=== PATIENT | female | born 1960 | race Caucasian/White ===

== ENCOUNTER 2021-10-25 16:41 | Emergency (ER) | payer MEDICARE, OTHER ==
[~2021-10-25] VITALS: Ht 154.9 cm; Wt 45.8 kg
--- NOTE | 2021-10-25 17:33 | ED General ---
General Chief Complaint: Altered Mental Status Stated Complaint: CONFUSION Source of Information: Patient, Family () Exam Limitations: Physical Impairments (BRENNAN ERICKSON MD) Source of Information: Old Records (From [facility]) (LAMIN GILLESPIE MD) History of Present Illness Date Seen by Provider: Oct 25, 2021 Time Seen by Provider: 17:00 Initial Comments Patient is a 61-year-old female who presents to the emergency department today with a chief complaint of being confused, not acting like her self, erratic jerky behavior. Her states he talked to her yesterday around 9:30 in the morning and she was planning to go to [place] to get her nails done. He states later in the afternoon she was found by his brother unresponsive on their porch and he took her to the hospital at [facility] where she had some lab work done (minimal), she was given some ropinirole and sent home. He states she has continued to act erratically today sounding confused and not acting like her self. She is on oxycodone for chronic neck and back pain. Reportedly her pill counts were correct yesterday. Her did bring her bag of medications with her today. She has not had any fever, nausea, vomiting, cough or shortness of breath. She has fallen - she complains of pain to her left elbow and has some abrasions. Illicit drugs were tested for yesterday and she was positive for opiates and oxycodone. This is consistent with her prescribed medications. She had a mild elevation in her white blood cell count; has brought medical records from that ED visit with him today. Very difficult to establish a timeline and history from the patient secondary to her confusion and her was not present for the majority of the visit at [place] yesterday so he is unaware of most of the details. Apparently he called her primary care doctor today and was instructed to bring her here for a CAT scan of the head. Timing/Duration: 24 Hours Severity: Moderate Associated Systoms: Malaise, Other (confusion) (BRENNAN ERICKSON MD) Allergies and Home Medications Allergies Coded Allergies: Penicillins (Verified Allergy, Unknown, rash, 10/25/21) unknown reactions other than rash cortisone (Verified Allergy, Unknown, 10/25/21) lorazepam (Verified Allergy, Unknown, 10/25/21) tetracycline (Verified Allergy, Unknown, 10/25/21) Patient Home Medication List Home Medication List Reviewed: Yes (BRENNAN ERICKSON MD) Review of Systems Review of Systems Constitutional: see HPI EENTM: no symptoms reported Respiratory: no symptoms reported Cardiovascular: no symptoms reported Gastrointestinal: no symptoms reported Genitourinary: no symptoms reported : No Musculoskeletal: joint pain (chronic neck and back pain "fibromyalgia") Skin: no symptoms reported difficult to obtain ROS from patient - most of this is from (BRENNAN ERICKSON MD) All Other Systems Reviewed Negative Unless Noted: Yes (BRENNAN ERICKSON MD) Past Mggyhcy-Fdxdyt-Oklxni Hx Patient Social History Tobacco Use?: Yes Tobacco type used: Cigarettes Substance use?: No Alcohol Use?: Yes Alcohol Frequency: Once in a while (LAMIN GILLESPIE MD) Past Medical History Surgeries: Yes Appendectomy, Gallbladder, Orthopedic (Tendon repair) Respiratory: No Cardiac: Yes High Cholesterol Neurological: Yes (Restless leg syndrome) : No Genitourinary: No Gastrointestinal: No Musculoskeletal: Yes Fibromyalgia, Scoliosis (With chronic pain) Lupus HEENT: No Cancer: No Psychosocial: Yes Anxiety, Depression (LAMIN GILLESPIE MD) Physical Exam Vital Signs Vital Signs - First Documented 10/25/21 16:52 Temp 37.2 Pulse 77 Resp 20 B/P (MAP) 125/67 (86) Pulse Ox 100 (LAMIN GILLESPIE MD) Vital Signs Capillary Refill : (BRENNAN ERICKSON MD) Height, Weight, BMI Height: '" Weight: lbs. oz. kg; BMI Method: General Appearance: Anxious, Thin Eyes: Bilateral Eye Normal Inspection, Bilateral Eye PERRL, Bilateral Eye EOMI HEENT: PERRL/EOMI, Other (dry oral mucosa) Neck: Full Range of Motion, Normal Inspection Respiratory: Lungs Clear, Normal Breath Sounds, No Accessory Muscle Use, No Respiratory Distress Cardiovascular: Regular Rate, Rhythm Gastrointestinal: Non Tender, Soft Extremity: Normal Capillary Refill, Normal Inspection, Normal Range of Motion, Non Tender, No Calf Tenderness Neurologic/Psychiatric: Alert, No Motor/Sensory Deficits, Disoriented Skin: Normal Color, Warm/Dry (BRENNAN ERICKSON MD) Focused Exam Lactate Level 10/25/21 17:42: Lactic Acid Level 1.15 (LAMIN GILLESPIE MD) Lactic Acid Level Laboratory Tests Test 10/25/21 17:42 Lactic Acid Level 1.15 MMOL/L (0.50-2.00) (LAMIN GILLESPIE MD) Progress/Results/Core Measures Suspected Sepsis SIRS Temperature: Pulse: Respiratory Rate: Laboratory Tests 10/25/21 17:26: White Blood Count 9.2 Blood Pressure / Mean: 10/25/21 17:42: Laboratory Tests 10/25/21 17:26: Platelet Count 244 (BRENNAN ERICKSON MD) Results/Orders Lab Results Laboratory Tests Test 10/25/21 17:26 10/25/21 17:42 10/25/21 17:43 Range/Units White Blood Count 9.2 4.3-11.0 10^3/uL Red Blood Count 4.29 3.80-5.11 10^6/uL Hemoglobin 13.0 11.5-16.0 g/dL Hematocrit 39 35-52 % Mean Corpuscular Volume 90 80-99 fL Mean Corpuscular Hemoglobin 30 25-34 pg Mean Corpuscular Hemoglobin Concent 34 32-36 g/dL Red Cell Distribution Width 12.8 10.0-14.5 % Platelet Count 244 130-400 10^3/uL Mean Platelet Volume 9.5 9.0-12.2 fL Immature Granulocyte % (Auto) 0 % Neutrophils (%) (Auto) 83 H 42-75 % Lymphocytes (%) (Auto) 12 12-44 % Monocytes (%) (Auto) 5 0-12 % Eosinophils (%) (Auto) 0 0-10 % Basophils (%) (Auto) 0 0-10 % Neutrophils # (Auto) 7.7 1.8-7.8 10^3/uL Lymphocytes # (Auto) 1.1 1.0-4.0 10^3/uL Monocytes # (Auto) 0.5 0.0-1.0 10^3/uL Eosinophils # (Auto) 0.0 0.0-0.3 10^3/uL Basophils # (Auto) 0.0 0.0-0.1 10^3/uL Immature Granulocyte # (Auto) 0.0 0.0-0.1 10^3/uL Erythrocyte Sedimentation Rate 37 H 0-30 MM/HR Sodium Level 137 135-145 MMOL/L Potassium Level 4.1 3.6-5.0 MMOL/L Chloride Level 99 98-107 MMOL/L Carbon Dioxide Level 26 21-32 MMOL/L Anion Gap 12 5-14 MMOL/L Blood Urea Nitrogen 15 7-18 MG/DL Creatinine 0.73 0.60-1.30 MG/DL Estimat Glomerular Filtration Rate 95 BUN/Creatinine Ratio 21 Glucose Level 129 H 70-105 MG/DL Calcium Level 9.5 8.5-10.1 MG/DL Corrected Calcium 9.5 8.5-10.1 MG/DL Magnesium Level 2.1 1.6-2.4 MG/DL Total Bilirubin 0.5 0.1-1.0 MG/DL Aspartate Amino Transf (AST/SGOT) 42 H 5-34 U/L Alanine Aminotransferase (ALT/SGPT) 23 0-55 U/L Alkaline Phosphatase 76 40-136 U/L Ammonia 13 11-32 UMOL/L Total Creatine Kinase 981 H 29-168 U/L C-Reactive Protein High Sensitivity 0.35 0.00-0.50 MG/DL Total Protein 7.7 6.4-8.2 GM/DL Albumin 4.0 3.2-4.5 GM/DL Procalcitonin 0.10 H <0.10 NG/ML Thyroid Stimulating Hormone (TSH) 0.63 0.35-4.94 UIU/ML Free Thyroxine 0.95 0.70-1.48 NG/DL Salicylates Level < 5.0 L 5.0-20.0 MG/DL Acetaminophen Level < 10 L 10-30 UG/ML Serum Alcohol < 10 <10 MG/DL Lactic Acid Level 1.15 0.50-2.00 MMOL/L Urine Color ORANGE Urine Clarity CLEAR Urine pH 6.0 5-9 Urine Specific [place] 1.020 1.016-1.022 Urine Protein TRACE H NEGATIVE Urine Glucose (UA) NEGATIVE NEGATIVE Urine Ketones NEGATIVE NEGATIVE Urine Nitrite NEGATIVE NEGATIVE Urine Bilirubin NEGATIVE NEGATIVE Urine Urobilinogen 0.2 < = 1.0 MG/DL Urine Leukocyte Esterase NEGATIVE NEGATIVE Urine RBC (Auto) NEGATIVE NEGATIVE Urine RBC NONE /HPF Urine WBC 2-5 /HPF Urine Squamous Epithelial Cells 5-10 /HPF Urine Crystals NONE /LPF Urine Bacteria LARGE H /HPF Urine Casts PRESENT /LPF Urine Hyaline Casts 0-2 H /LPF Urine Mucus NEGATIVE /LPF Urine Culture Indicated YES Urine Opiates Screen NEGATIVE NEGATIVE Urine Oxycodone Screen POSITIVE H NEGATIVE Urine Methadone Screen NEGATIVE NEGATIVE Urine Propoxyphene Screen NEGATIVE NEGATIVE Urine Barbiturates Screen NEGATIVE NEGATIVE Ur Tricyclic Antidepressants Screen NEGATIVE NEGATIVE Urine Phencyclidine Screen NEGATIVE NEGATIVE Urine Amphetamines Screen NEGATIVE NEGATIVE Urine Methamphetamines Screen NEGATIVE NEGATIVE Urine Benzodiazepines Screen NEGATIVE NEGATIVE Urine Cocaine Screen NEGATIVE NEGATIVE Urine Cannabinoids Screen NEGATIVE NEGATIVE (LAMIN GILLESPIE MD) My Orders Orders - LAMIN GILLESPIE MD Hs C Reactive Protein (10/25/21 18:18) Erythrocyte Sedimentation Rate (10/25/21 18:18) Procalcitonin (Pct) (10/25/21 18:18) Thyroid Stimulating Hormone (10/25/21 18:18) Free T4 (Free Thyroxine) (10/25/21 18:18) Ed Iv/Invasive Line Start (10/25/21 19:02) Lactated Ringers (Lr 1000 Ml Iv Solution (10/25/21 19:15) Magnesium (10/25/21 19:04) Sulfamethoxazole/Trimet Ds Tab (Bactrim (10/25/21 20:30) Nicotine Patch (Nicoderm Patch) (10/25/21 21:30) (LAMIN GILLESPIE MD) Medications Given in ED Current Medications Medications Dose Ordered Sig/Mayra Route Start Time Stop Time Status Last Admin Dose Admin Trimethoprim/ Sulfamethoxazole 1 ea ONCE ONCE PO 10/25/21 20:30 10/25/21 20:31 DC 10/25/21 20:32 1 EA (LAMIN GILLESPIE MD) Vital Signs/I&O 10/25/21 10/25/21 16:52 23:19 Temp 37.2 37.2 Pulse 77 68 Resp 20 18 B/P (MAP) 125/67 (86) 130/62 Pulse Ox 100 100 10/25/21 23:59 Intake Total 1000 ml Balance 1000 ml (LAMIN GILLESPIE MD) Vital Signs/I&O Capillary Refill : (BRENNAN ERICKSON MD) Progress Note #1: Time: 19:29 Progress Note Care of this patient was assumed from Dr. Erickson at shift change. Labs from the outside facility and present work-up were reviewed. Additional labs were ordered and reviewed. CT was reviewed by me and report reviewed. There are areas of hypoattenuation that should be further evaluated with MRI. I have reexamined the patient and found her to have it no focal motor deficits. NIH score was 2 for problems with possible aphasia and extinction/inattention. She was unable to accurately describe the pictures of the kitchen seen. She tried to link different items in the pictures with each other and with the objects on the opposite side in a nonsensical manner. She also was not able to identify her left hand and foot as these anatomical parts but was able to identify them as "left". Instead of stating hand or foot, she labeled them as "the second one" or "2". Infectious etiology seems unlikely as her CRP, ESR, and procalcitonin were although. She also has no leukocytosis or fever. There was bacteria in the urine which may be contamination or UTI. We will treat with Rocephin empirically. I discussed the case with Dr. Caldera, stroke neurologist at [facility]. She recommends transfer to a facility with MRI services over the weekend and neurology consultation. We cannot provide those services at this facility. She did not believe any further CT imaging with contrast would be of benefit at this time. The presentation seems to be most consistent with some type of encephalopathy rather than acute stroke syndrome. She does have a history of lupus which would prompt suspicion for an autoimmune process. Demyelinating process is also a consideration. I will discuss transfer with patient and . During work-up we did contact [facility] and confirmed that no CT scan was performed there yesterday. We have no prior CT for comparison. Progress Note #2: Time: 20:20 Progress Note Patient was noted to have an elevated creatinine kinase when compared to the same lab from [place] yesterday. She received a liter of LR in the emergency room. Rocephin is being administered for possible urinary tract infection. I discussed the case with Dr. Hwang, hospitalist at [facility] in [place]. He accepts transfer. Patient will be transferred by private vehicle as she is stable and willing to transfer by private vehicle with her . Progress Note #3: Time: 20:26 Progress Note Patient reports allergy to penicillin of unknown nature. She reports hives but is unsure if she had any anaphylactic symptoms. We therefore will not give Rocephin. As an alternative I will give an oral dose of Bactrim DS. (LAMIN GILLESPIE MD) ECG Initial ECG Impression Date: Oct 25, 2021 Initial ECG Impression Time: 17:38 Initial ECG Rate: 60 Initial ECG Rhythm: Normal Sinus Initial ECG Intervals CA interval 140 QRS 96 QTC 411 Comment No ectopy is noted, no ST segment elevation or depression, normal axis (BRENNAN ERICKSON MD) Diagnostic Imaging Diagonstic Imaging: CT Plain Films/CT/US/NM/MRI: head Comments CT head viewed by me and report reviewed. Discussed with the stroke neurologist. See report below: NAME: HEBER LAROSE [facility] REC#: [id number] PT STATUS: REG ER : 1960 PHYSICIAN: BRENNAN ERICKSON MD ADMIT DATE: 10/25/21/ER Signed Date of Exam:10/25/21 CT HEAD WO PROCEDURE: CT head without contrast. TECHNIQUE: Multiple contiguous axial images were obtained through the brain without the use of intravenous contrast. Auto Exposure Controls were utilized during the CT exam to meet ALARA standards for radiation dose reduction. INDICATION: Altered mental status. COMPARISON: None. FINDINGS: No CT evidence of an acute territorial infarction. No intracranial hemorrhage, mass effect, hydrocephalus or extra-axial fluid collection. Nonspecific low-attenuation changes in the white matter are quite extensive and greater than expected for age. These are also somewhat asymmetric. Osseous structures are intact. Visualized paranasal sinuses and mastoids are clear. IMPRESSION: 1. No CT evidence of acute infarction or hemorrhage. 2. Extensive low-attenuation changes throughout the supratentorial white matter are much greater than expected for age. Findings could be due to multiple acute or chronic processes such as demyelinating disease or vasculitis. Recommend correlation with history. No priors are available for comparison. This could be further evaluated with MRI without and with IV contrast. Dictated by: Dictated on workstation # [id number] Dict: 10/25/21 1805 Trans: 10/25/211926 [id number] Interpreted by: GIFTY ESPARZA MD Electronically signed by: GIFTY ESPARZA MD 10/25/211926 (LAMIN GILLESPIE MD) Departure Impression Primary Impression: Encephalopathy acute Additional Impressions: Abnormal CT of brain Elevated creatine kinase Urinary tract infection Qualified Codes: N39.0 - Urinary tract infection, site not specified Disposition: HOME, SELF-CARE Condition: Improved Transfer Transfer Reason: Exceeds level of care Time Spoke to Accepting Phy: 20:[address] Hwang, hospitalist at [facility] in [place], accepts transfer. Transfer Time: 23:20 Transfer Facility: [facility] Method of Transfer: Private Vehicle (LAMIN GILLESPIE MD) Departure-Patient Inst. Referrals: NO,LOCAL PHYSICIAN (PCP/Family) Primary Care Physician BRENNAN ERICKSON MD Oct 25, 2021 17:33 LAMIN GILLESPIE MD Oct 25, 2021 19:31
[2021-10-25 17:34] LABS: BASOPHILS % (AUTO) 0 % (0-10); EOSINOPHILS % (AUTO) 0 % (0-10); HEMATOCRIT 39 % (35-52); LYMPHOCYTES # (AUTO) 1.1 10^3/uL (1.0-4.0); LYMPHOCYTES % (AUTO) 12 % (12-44); MEAN CORPUSCULAR HEMOGLOBIN 30 pg (25-34); MEAN CORPUSCULAR HGB CONC 34 g/dL (32-36); MEAN CORPUSCULAR VOLUME 90 fL (80-99); MEAN PLATELET VOLUME 9.5 fL (9.0-12.2); MONOCYTES # (AUTO) 0.5 10^3/uL (0.0-1.0); MONOCYTES % (AUTO) 5 % (0-12); NEUTROPHILS # (AUTO) 7.7 10^3/uL (1.8-7.8); NEUTROPHILS % (AUTO) 83 % (42-75); PLATELET COUNT 244 10^3/uL (130-400); WHITE BLOOD COUNT 9.2 10^3/uL (4.3-11.0)
[2021-10-25 17:49] LABS: BILIRUBIN,URINE NEGATIVE (NEGATIVE); CLARITY,URINE CLEAR; COLOR,URINE ORANGE; GLUCOSE, URINE (UA) NEGATIVE (NEGATIVE); KETONES,URINE NEGATIVE (NEGATIVE); LEUKOCYTE ESTERASE ,URINE NEGATIVE (NEGATIVE); NITRITE,URINE NEGATIVE (NEGATIVE); PROTEIN,URINE TRACE (NEGATIVE)
[2021-10-25 17:50] LABS: CHLORIDE 99 MMOL/L (98-107); POTASSIUM 4.1 MMOL/L (3.6-5.0); SODIUM 137 MMOL/L (135-145)
[2021-10-25 17:52] LABS: AMMONIA 13 UMOL/L (11-32); CALCIUM 9.5 MG/DL (8.5-10.1)
[2021-10-25 17:53] LABS: GLUCOSE 129 MG/DL (70-105); TOTAL PROTEIN 7.7 GM/DL (6.4-8.2)
[2021-10-25 17:54] LABS: CARBON DIOXIDE 26 MMOL/L (21-32)
[2021-10-25 17:55] LABS: BILIRUBIN,TOTAL 0.5 MG/DL (0.1-1.0)
[2021-10-25 17:57] LABS: ALKALINE PHOSPHATASE 76 U/L (40-136); CREATININE SERUM 0.73 MG/DL (0.60-1.30); GFR ESTIMATED 95
[2021-10-25 17:58] LABS: BUN/CREATININE RATIO 21
[2021-10-25 17:59] LABS: SALICYLATE < 5.0 MG/DL (5.0-20.0)
[2021-10-25 18:00] LABS: ALANINE AMINOTRANSFERASE 23 U/L (0-55); CREATINE KINASE 981 U/L (29-168)
[2021-10-25 18:01] LABS: AMPHETAMINE SCREEN, URINE NEGATIVE (NEGATIVE); BARBITURATE SCREEN URINE NEGATIVE (NEGATIVE); BENZODIAZEPINES SCREEN URINE NEGATIVE (NEGATIVE); CANNABINOID SCREEN, URINE NEGATIVE (NEGATIVE); COCAINE SCREEN URINE NEGATIVE (NEGATIVE); METHADONE STAT NEGATIVE (NEGATIVE); OPIATE SCREEN URINE NEGATIVE (NEGATIVE); OXYCODONE STAT POSITIVE (NEGATIVE); PROPOXYPHENE STAT NEGATIVE (NEGATIVE); TRICYCLIC ANTIDEPRESSANTS SCRE NEGATIVE (NEGATIVE)
[2021-10-25 18:08] LABS: ACETAMINOPHEN < 10 UG/ML (10-30)
--- NOTE | 2021-10-25 18:12 | Diagnostic Imaging Report ---
PROCEDURE: CT head without contrast. TECHNIQUE: Multiple contiguous axial images were obtained through the brain without the use of intravenous contrast. Auto Exposure Controls were utilized during the CT exam to meet ALARA standards for radiation dose reduction. INDICATION: Altered mental status. COMPARISON: None. FINDINGS: No CT evidence of an acute territorial infarction. No intracranial hemorrhage, mass effect, hydrocephalus or extra-axial fluid collection. Nonspecific low-attenuation changes in the white matter are quite extensive and greater than expected for age. These are also somewhat asymmetric. Osseous structures are intact. Visualized paranasal sinuses and mastoids are clear. IMPRESSION: 1. No CT evidence of acute infarction or hemorrhage. 2. Extensive low-attenuation changes throughout the supratentorial white matter are much greater than expected for age. Findings could be due to multiple acute or chronic processes such as demyelinating disease or vasculitis. Recommend correlation with history. No priors are available for comparison. This could be further evaluated with MRI without and with IV contrast. Dictated by: Dictated on workstation # [id number]
[2021-10-25 18:14] LABS: BACTERIA,URINE LARGE /HPF; HYALINE CASTS, URINE 0-2 /LPF
[2021-10-25 18:59] LABS: FREE T4 (FREE THYROXINE) 0.95 NG/DL (0.70-1.48)
[2021-10-25] MEDS ORDERED: LACTATED RINGERS 1,000 ML IV ONE (19:15)
[2021-10-25] MEDS ORDERED: cefTRIAXone 1 GM PRE-MIX 50 ML IV STA (20:22)
[2021-10-25] MEDS ORDERED: TRIM/SULFAMETH 160/800 (SEPTRA DS) TAB PO ONE (20:30)
[2021-10-25] MEDS ORDERED: NICOTINE 21 MG (NICODERM) PATCH TD STA (21:30)
[2021-10-25 23:19] VITALS: BP 130/62
== END 2021-10-25 23:20 | disposition home or self-care (01) ==
LOC: EDUNIT# 16:41 → ER 16:44
DX: G93.40 Encephalopathy, unspecified (principal); R94.02 Abnormal brain scan; R74.8 Abnormal levels of other serum enzymes; N39.0 Urinary tract infection, site not specified; G89.29 Other chronic pain; M54.2 Cervicalgia; M54.9 Dorsalgia, unspecified; F17.210 Nicotine dependence, cigarettes, uncomplicated; Z79.891 Long term (current) use of opiate analgesic; Z88.0 Allergy status to penicillin
CPT/HCPCS: 70450; 80053; 80306; 81000; 82140; 82550; 83605; 83735; 84145; 84439; 84443; 85025; 85652; 86141; 87077; 87088; 99285; G0480 ×3; 36415; 80320; 80329; 87186; 93005

== ENCOUNTER → 2022-07-11 | Outpatient (CLI) | payer MEDICARE ==
--- NOTE | 2022-07-11 16:01 | Diagnostic Imaging Report ---
EXAMINATION: Lumbosacral spine 2 or 3 views HISTORY: Fall two days ago. Back pain. COMPARISON: None available. FINDINGS: There is no acute fracture or dislocation of the lumbar spine. There is right convexity curvature of the lumbar spine centered at the L3 level. No focal osseous lesions are seen. There is calcified aortic atherosclerotic plaque. IMPRESSION: 1. No acute fracture or dislocation in the lumbar spine. Dictated by: Dictated on workstation # [id number]
--- NOTE | 2022-07-11 16:04 | Diagnostic Imaging Report ---
INDICATION: Right leg pain. FINDINGS: AP and lateral views of the right femur show no fracture or dislocation. IMPRESSION: Negative right femur. Dictated by: Dictated on workstation # [id number]
--- NOTE | 2022-07-11 16:04 | Diagnostic Imaging Report ---
INDICATION: Right lower leg pain. FINDINGS: AP and lateral views of the right tibia and fibula show no fracture, dislocation or other acute abnormalities. IMPRESSION: Negative right tibia and fibula. Dictated by: Dictated on workstation # [id number]
--- NOTE | 2022-07-11 16:05 | Diagnostic Imaging Report ---
INDICATION: Injury from a fall. AP view pelvis and two additional views of each hip are obtained. FINDINGS: The pelvic and obturator rings appear to be intact. Hip joints are intact. Joint spaces are well maintained. IMPRESSION: Negative pelvis and bilateral hips. Dictated by: Dictated on workstation # [id number]
== END ==
LOC: RAD 15:02
PROVIDERS: ATTEND Registered Nurse Critical Care Medicine
DX: M54.41 Lumbago with sciatica, right side (principal); M25.551 Pain in right hip; M79.651 Pain in right thigh; F05 Delirium due to known physiological condition; M79.7 Fibromyalgia; R51.9 Headache, unspecified; M62.81 Muscle weakness (generalized); R53.83 Other fatigue; R53.81 Other malaise; G25.2 Other specified forms of tremor; M41.9 Scoliosis, unspecified; R26.81 Unsteadiness on feet; M79.661 Pain in right lower leg; M54.6 Pain in thoracic spine
CPT/HCPCS: 72100; 73523; 73552; 73590